=== PATIENT | female | born 1990 | race Caucasian/White ===

== ENCOUNTER 2017-04-26 10:47 | Emergency (ER) | payer BC, OTHER ==
[~2017-04-26] VITALS: Ht 165.1 cm; Wt 82.4 kg
[~2017-04-26 10:47] MED LIST: ADVIL,NUPRIN,M200 MG PO; AUGMENTIN875 MG PO; DOXYCYCLINE HY100 M3 PO; MACRODANTIN100 MG PO; METHADONE10 MG/1 M1 PO; METHADONE5 MG PO; MIRALAX255 GM PO; MIRENA52 MG IY; ZOFRAN ODT4 MG PO; ZOFRAN8 MG PO
[2017-04-26] MEDS ORDERED: FLEXERIL10 MG PO (12:07)
[2017-04-26] MEDS ORDERED: NAPROSYN500 MG PO (12:07)
[2017-04-26 12:27] VITALS: BP 118/86
== END 2017-04-26 12:28 | disposition home or self-care (01) ==
LOC: EME 10:47
DX: M62.838 Other muscle spasm (principal); M54.2 Cervicalgia; G89.29 Other chronic pain
CPT/HCPCS: 99281; 99283

== ENCOUNTER 2018-01-28 08:57 | Emergency (ER) | payer OTHER ==
[~2018-01-28] VITALS: Ht 165.1 cm; Wt 80.4 kg
[~2018-01-28 08:57] MED LIST changes: +FLEXERIL10 MG PO; +LIDOCAINE20 MG/1 M5 PO; +MOTRIN800 MG PO; +NAPROSYN500 MG PO; +NORCO 7.5/321 TABLET PO
[2018-01-28 11:08] LABS: HEMOGLOBIN 13.8 G/DL (11.9-15.5); MCH 30.9 PG (29.0-34.0); MCHC 36.3 G/DL (30.0-36.0); MCV 85.2 FL (83-99); PLATELET COUNT 262 K/uL (156-360); RBC DIS.WIDTH-CV 11.5 % (11.8-14.6); RBC DIS.WIDTH-SD 35.1 % (39-53); RED BLOOD COUNT 4.46 M/uL (3.80-5.20)
[2018-01-28 11:12] LABS: APPEARANCE CLEAR ((CLEAR)); BILIRUBIN NEGATIVE; BLOOD NEGATIVE; COLOR YELLOW ((YELLOW)); GLUCOSE (STRIP) NEGATIVE; KETONES NEGATIVE; LEUKOCYTES NEGATIVE; NITRITE NEGATIVE; PROTEIN (STRIP) NEGATIVE; SPECIFIC GRAVITY 1.012 (1.000-1.030); UCUL ADDED? NO; UROBILINOGEN 0.2 MG/DL (0.2-1.0)
[2018-01-28 11:29] LABS: QUANTITATIVE HCG < 4.0 MIU/ML
[2018-01-28 11:35] LABS: CHLORIDE 104 MEQ/L (99-109); CREATININE 0.8 MG/DL (0.6-1.3); GFR ESTIMATE (CALCULATED) > 59 mL/min/; GLUCOSE 108 mg/dL (70-99); POTASSIUM 4.3 MEQ/L (3.7-5.4); SODIUM 140 MEQ/L (136-147); UREA NITROGEN (BUN) 11 mg/dL (9-23)
[2018-01-28 13:12] VITALS: BP 131/92
== END 2018-01-28 13:14 | disposition home or self-care (01) ==
LOC: EME 08:57
PROVIDERS: Nurse Practitioner Family
DX: R10.9 Unspecified abdominal pain (principal); R14.0 Abdominal distension (gaseous); F11.23 Opioid dependence with withdrawal; F31.9 Bipolar disorder, unspecified; F32.9 Major depressive disorder, single episode, unspecified; F90.9 Attention-deficit hyperactivity disorder, unspecified type; F42.9 Obsessive-compulsive disorder, unspecified; M41.9 Scoliosis, unspecified; Z87.891 Personal history of nicotine dependence
CPT/HCPCS: 74177; 80048; 81003; 84702; 85027; 99281; 99285; J2405; J7120